=== PATIENT | male | born 1990 ===

== ENCOUNTER 2020-05-17 02:08 | Emergency (ER) | payer SELFPAY ==
--- NOTE | 2020-05-17 02:52 | EDPHYS ---
Physician Documentation [facility] Name: Evert Duncan Age: 30 yrs Sex: Male : 1990 Arrival Date: 05/17/2020 Time: 02:14 Bed 6 Private MD: ED Physician Wild Delvalle HPI: 05/17 02:54 This 30 yrs old Male presents to ER via Ambulatory with complaints of Runny Nose. tw4 02:54 The patient or guardian reports cough. Onset: The symptoms/episode began/occurred tw4 today. Severity of symptoms: At their worst the symptoms were moderate, in the emergency department the symptoms are unchanged. The patient has not experienced similar symptoms in the past. Historical: - Allergies: 02:26 No Known Allergies; rv - Home Meds: :26 None [Active]; rv - PMHx: 02:26 Asthma; rv - PSHx: 02:26 None; rv - Immunization history:: Adult Immunizations up to date. - Social history:: Smoking status: Patient reports the use of cigarette tobacco products, smokes one pack cigarettes per day. ROS: 02:54 Constitutional: Negative for fever, chills, and weight loss, Eyes: Negative for injury, tw4 pain, redness, and discharge, Cardiovascular: Negative for chest pain, palpitations, and edema, Respiratory: Negative for shortness of breath, cough, wheezing, and pleuritic chest pain, Abdomen/GI: Negative for abdominal pain, nausea, vomiting, diarrhea, and constipation, Back: Negative for injury and pain, MS/Extremity: Negative for injury and deformity, Skin: Negative for injury, rash, and discoloration, Neuro: Negative for headache, weakness, numbness, tingling, and seizure. 02:54 ENT: Positive for nasal discharge. Exam: 02:54 Constitutional: This is a well developed, well nourished patient who is awake, alert, tw4 and in no acute distress. Head/Face: Normocephalic, atraumatic. Chest/axilla: Normal chest wall appearance and motion. Nontender with no deformity. No lesions are appreciated. Cardiovascular: Regular rate and rhythm with a normal S1 and S2. No gallops, murmurs, or rubs. Normal PMI, no JVD. No pulse deficits. Respiratory: Lungs have equal breath sounds bilaterally, clear to auscultation and percussion. No rales, rhonchi or wheezes noted. No increased work of breathing, no retractions or nasal flaring. Abdomen/GI: Soft, non-tender, with normal bowel sounds. No distension or tympany. No guarding or rebound. No evidence of tenderness throughout. Skin: Warm, dry with normal turgor. Normal color with no rashes, no lesions, and no evidence of cellulitis. MS/ Extremity: Pulses equal, no cyanosis. Neurovascular intact. Full, normal range of motion. Neuro: Awake and alert, GCS 15, oriented to person, place, time, and situation. Cranial nerves II-XII grossly intact. Motor strength 5/5 in all extremities. Sensory grossly intact. Cerebellar exam normal. Normal gait. Vital Signs: 02:23 BP 121 / 78; Pulse 93; Resp 19; Temp 98.6; Pulse Ox 99% ; Weight 89.36 kg; Height 5 ft. rv 7 in. (170.18 cm); Pain 0/10; 02:23 Body Mass Index 30.85 (89.36 kg, 170.18 cm) rv MDM: 02:51 Patient medically screened. tw4 02:51 Medical screen evaluation completed. EMTALA emergency medical condition absent. tw4 02:54 Differential Diagnosis: Obstructed Airway Bronchitis Influenza Upper Respiratory tw4 Infection. Data reviewed: vital signs, nurses notes. Data reviewed: lab test result(s). Counseling: I had a detailed discussion with the patient and/or guardian regarding: the historical points, exam findings, and any diagnostic results supporting the discharge/admit diagnosis. Special discussion: I discussed with the patient/guardian in detail that at this point there is no indication for admission to the hospital. It is understood, however, that if the symptoms persist or worsen the patient needs to return immediately for re-evaluation. Administered Medications: No medications were administered Disposition: 05/17/20 02:52 Discharged to Home. Impression: Acute upper respiratory infection, unspecified. - Condition is Stable. - Discharge Instructions: Viral Respiratory Infection. - Medication Reconciliation Form, Thank You Letter, Antibiotic Education, Prescription Opioid Use form. - Follow up: Private Physician; When: Upon discharge from the Emergency Department; Reason: Recheck today's complaints, Continuance of care, Re-evaluation by your physician. - Problem is new. - Symptoms are unchanged. Signatures: Wild Delvalle MD MD tw4 Magen Lofton RN RN rv Corrections: (The following items were deleted from the chart) 02:59 02:52 05/17/2020 02:52 Discharged to Home. Impression: Acute upper respiratory rv infection, unspecified. Condition is Stable. Forms are Medication Reconciliation Form, Thank You Letter, Antibiotic Education, Prescription Opioid Use. Follow up: Private Physician; When: Upon discharge from the Emergency Department; Reason: Recheck today's complaints, Continuance of care, Re-evaluation by your physician. Problem is new. Symptoms are unchanged. tw4
--- NOTE | 2020-05-17 02:52 | ER ---
Nurse's Notes [facility] Name: Evert Duncan Age: 30 yrs Sex: Male : 1990 Arrival Date: 05/17/2020 Time: 02:14 Bed 6 Private MD: Diagnosis: Acute upper respiratory infection, unspecified Presentation: 05/17 02:23 Chief complaint: Patient states: COUGH AND COLDS FOR THREE DAYS. TWO HOURS AGO HE THREW rv UP BECAUSE HE COULDN'T BREATHE. NO DOCUMENTED FEVER. DENIES DIARRHEA. Coronavirus screen: Client denies travel out of the [place] in the last 14 days. congestion, cough unrelated to allergies, difficulty breathing, Client presents with at least one sign or symptom that may indicate coronavirus-19. Standard/surgical mask placed on the client. Provider contacted for isolation considerations. Ebola Screen: No symptoms or risks identified at this time. Initial Sepsis Screen: Does the patient meet any 2 criteria? No. Patient's initial sepsis screen is negative. Does the patient have a suspected source of infection? No. Patient's initial sepsis screen is negative. Risk Assessment: Do you want to hurt yourself or someone else? Patient reports no desire to harm self or others. Onset of symptoms was May 15, 2020. 02:23 Method Of Arrival: Ambulatory rv 02:23 Acuity: BRYAN 3 rv Triage Assessment: 02:26 General: Appears comfortable, Behavior is calm, cooperative. Pain: Denies pain. EENT: rv No signs and/or symptoms were reported regarding the EENT system. Neuro: Level of Consciousness is awake, alert, obeys commands, Oriented to person, place, time, situation. Cardiovascular: Patient's skin is warm and dry. Respiratory: Airway is patent Respiratory effort is even, unlabored, Breath sounds are clear bilaterally. Derm: Skin is intact. Historical: - Allergies: 02: No Known Allergies; rv - Home Meds: : None [Active]; rv - PMHx: 02: Asthma; rv - PSHx: 02: None; rv - Immunization history:: Adult Immunizations up to date. - Social history:: Smoking status: Patient reports the use of cigarette tobacco products, smokes one pack cigarettes per day. Screenin: Abuse screen: Denies threats or abuse. Denies injuries from another. Nutritional rv screening: No deficits noted. Tuberculosis screening: No symptoms or risk factors identified. Fall Risk None identified. Assessment: 02:57 Reassessment: DR WALTON DISCHARGED THE PATIENT AFTER ASSESSING HIM AT BEDSIDE. RANJIT, rv CHARGE NURSE, TALKED TO THE PATIENT AND BELT MOLDER IN THE ROOM AND EXPLAINED THE SITUATION. Vital Signs: 02:23 BP 121 / 78; Pulse 93; Resp 19; Temp 98.6; Pulse Ox 99% ; Weight 89.36 kg; Height 5 ft. rv 7 in. (170.18 cm); Pain 0/10; 02:23 Body Mass Index 30.85 (89.36 kg, 170.18 cm) rv ED Course: 02:14 Patient arrived in ED. ag3 02:23 Magen Lofton, RN is Primary Nurse. rv 02:25 Triage completed. rv 02:26 Arm band placed on right wrist. Patient placed in the treatment room, on a stretcher, rv Patient notified of wait time. 02:27 Patient has correct armband on for positive identification. Bed in low position. Call rv light in reach. Side rails up X 1. Pulse ox on. NIBP on. 02:35 Wild Walton MD is Attending Physician. tw4 02:59 No provider procedures requiring assistance completed. Patient did not have IV access rv during this emergency room visit. Administered Medications: No medications were administered Outcome: 02:52 Discharge ordered by . tw4 02:59 Discharged to home rv 02:59 Condition: good 02:59 Discharge instructions given to patient, friend, Instructed on discharge instructions, follow up and referral plans. Demonstrated understanding of instructions, follow-up care. 02:59 Patient left the ED. rv Signatures: Wild Walton MD MD tw4 Magen Lofton, RN RN Radha Ching ag3
[2020-05-17 03:07] VITALS: BP 121/78; TEMP 98.6; O2SAT 99
== END 2020-05-17 02:59 | disposition home or self-care (01) ==
LOC: ER 02:08
DX: J06.9 Acute upper respiratory infection, unspecified (principal); F17.210 Nicotine dependence, cigarettes, uncomplicated
CPT/HCPCS: 99283